=== PATIENT | female | born 1945 | race Caucasian/White ===

== ENCOUNTER 2023-01-01 09:31 | Outpatient (OUT) | payer MEDICARE, BC, SELFPAY ==
--- NOTE | 2023-01-01 09:37 | MM_ITS ---
Patient: KATIE LINDO Exam Date: 01/01/2023 : 1945 Gender:F Ordering : DR Deana Perry M.D. Admission #: [id number] Family : Order #: [id number] CLICK HERE TO VIEW EXAM RADIOLOGY REPORT PROCEDURE: MM TOMOSYNTHESIS SCREENING BI COMPARISON: MG MAMM SCREEN 3D [facility] CAD, 11/25/2021. MG MAMM SCREEN [facility] W CAD, 10/18/2019. MG MAMM SCREEN [facility] W CAD, 10/01/2018. MG MAMM [facility] SCRN W CAD DIG, 08/11/2014. INDICATIONS: Screening mammogram Z12.31 Calculator Name NCI Breast Cancer Risk Assessment Tool 5 Year Breast Cancer Risk 3.00% Lifetime Breast Cancer Risk 5.00% Personal Breast Cancer No Personal Ovarian Cancer No Treatments None Family Cancers Sister with breast cancer at age 70. LOCATION: [facility] BREAST COMPOSITION: Scattered areas fibroglandular density. FINDINGS: DIAGNOSTIC CATEGORY 2--BENIGN FINDING: RIGHT BREAST: No significant suspicious finding. Scattered benign-appearing calcifications are present. Scattered benign-appearing nodules are present. No significant change has occurred. LEFT BREAST: No significant suspicious finding. Scattered benign-appearing calcifications are present. Scattered benign-appearing nodules are present. No significant change has occurred. RECOMMENDATIONS: ROUTINE MAMMOGRAM AND CLINICAL EVALUATION IN 12 MONTHS. PLEASE NOTE: A NORMAL MAMMOGRAM DOES NOT EXCLUDE THE POSSIBILITY OF BREAST CANCER. A CLINICALLY SUSPICIOUS PALPABLE LUMP SHOULD BE BIOPSIED. Dictated by: Bryce To M.D. on 01/01/2023 at 12:40 Approved by: Bryce To M.D. on 01/01/2023 at 12:57
== END 2023-01-01 09:32 | disposition home or self-care (01) ==
LOC: MAMMO 09:31
PROVIDERS: PCP Family Medicine; Visit Provider Family Medicine
DX: Z12.31 Encounter for screening mammogram for malignant neoplasm of breast (principal); Z80.3 Family history of malignant neoplasm of breast
CPT/HCPCS: 77063; 77067

== ENCOUNTER 2023-08-07 09:53 | Outpatient (OUT) | payer MEDICARE, BC, SELFPAY ==
[2023-08-07 10:33] LABS: Basophils Percent Auto 0.9 % (0.2-2.0); Eosinophils Absolute Auto 0.2 10^3/uL (0.0-0.7); Eosinophils Percent Auto 5.5 % (0.9-7.0); Hematocrit 35.1 % (36.0-48.0); Hemoglobin 11.6 g/dL (12.0-16.0); Immature Granulocytes Abs Auto 0.01 10^3/uL (0.00-0.03); Immature Granulocytes Pct Auto 0.3 % (0.0-0.5); Lymphocytes Absolute Auto 0.9 10^3/uL (1.2-3.8); Lymphocytes Percent Auto 24.8 % (20.5-60.0); Mean Corpuscular Hemoglobin 30.3 pg (26.7-34.0); Mean Corpuscular Volume 91.6 fL (81.0-99.0); Mean Platelet Volume 8.7 fL (9.5-13.5); Monocytes Absolute Auto 0.4 10^3/uL (0.3-0.8); Monocytes Percent Auto 11.2 % (1.7-12.0); Neutrophils Percent Auto 57.3 % (43.0-75.0); Platelet Count 213 10^3/uL (150-450); Red Blood Count 3.83 10^6/uL (4.20-5.40); Red Cell Distribution Width 13.1 % (11.0-15.0); White Blood Count 3.5 10^3/uL (4.0-11.0)
[2023-08-07 12:02] LABS: Anion Gap 10.6; BUN Creatinine Ratio 22.8; Calcium 9.1 mg/dL (8.5-10.1); Carbon Dioxide 32.1 mmol/L (21.0-32.0); Chloride 100 mmol/L (98-107); Estimated GFR (African America >60 (>=60); Estimated GFR (Non-African Ame 59 (>=60); Glucose 98 mg/dL (74-106); Potassium 3.7 mmol/L (3.5-5.1); Sodium 139 mmol/L (136-145)
== END 2023-08-07 09:54 | disposition home or self-care (01) ==
LOC: LAB 09:55
PROVIDERS: PCP Family Medicine; Visit Provider Family Medicine
DX: I10 Essential (primary) hypertension (principal)
CPT/HCPCS: 36415; 80048; 85025

== ENCOUNTER 2024-01-07 09:57 | Outpatient (OUT) | payer MEDICARE, BC, SELFPAY ==
--- NOTE | 2024-01-07 | MM_ITS ---
Patient Name: KATIE LINDO MR#: [id number] : 1945 Exam Date: 01/07/2024 Ordering Doctor: DR Deana Perry M.D. RADIOLOGY REPORT PROCEDURE: MM TOMOSYNTHESIS SCREENING BI COMPARISON: MM TOMOSYNTHESIS SCREENING BI, 01/01/2023. MG MAMM SCREEN 3D [facility] CAD, 11/25/2021. MG MAMM SCREEN [facility] W CAD, 10/18/2019. MG MAMM [facility] SCRN W CAD DIG, 08/11/2014. INDICATIONS: SCREENING Calculator Name NCI Breast Cancer Risk Assessment Tool 5 Year Breast Cancer Risk 2.90% Lifetime Breast Cancer Risk 4.50% Personal Breast Cancer No Personal Ovarian Cancer No Treatments None Family Cancers Sister with breast cancer at age 70. LOCATION: [facility] BREAST COMPOSITION: There are scattered areas of fibroglandular density. FINDINGS: DIAGNOSTIC CATEGORY 2--BENIGN FINDING: RIGHT BREAST: No significant suspicious finding. Scattered benign-appearing calcifications are present. Scattered benign-appearing nodules are present. No significant change has occurred. LEFT BREAST: No significant suspicious finding. Scattered benign-appearing calcifications are present. Scattered benign-appearing nodules are present. No significant change has occurred. RECOMMENDATIONS: ROUTINE MAMMOGRAM AND CLINICAL EVALUATION IN 12 MONTHS. PLEASE NOTE: A NORMAL MAMMOGRAM DOES NOT EXCLUDE THE POSSIBILITY OF BREAST CANCER. A CLINICALLY SUSPICIOUS PALPABLE LUMP SHOULD BE BIOPSIED. Dictated by: Bryce To M.D. on 01/08/2024 at 14:47 Approved by: Bryce To M.D. on 01/08/2024 at 14:50
== END 2024-01-07 09:58 | disposition home or self-care (01) ==
LOC: MAMMO 09:57
PROVIDERS: PCP Family Medicine; Visit Provider Family Medicine
DX: Z12.31 Encounter for screening mammogram for malignant neoplasm of breast (principal); Z80.3 Family history of malignant neoplasm of breast
CPT/HCPCS: 77063; 77067

== ENCOUNTER 2024-03-14 13:01 | Emergency (ER) | payer MEDICARE, BC, SELFPAY ==
[2024-03-14] VITALS (11 sets, daily range): BP systolic 127–152; BP diastolic 71–98; PULSE 92–110; TEMP 36.8–37.6; O2SAT 95–141; BMI 32.6
--- NOTE | 2024-03-14 14:17 | ECG_ITS ---
The [facility] Test Date: 2024-03-14 Pat Name: KATIE LINDO Department: Room: - Gender: Female [employer]: : 1945 Requested By: TRAM WALLER Order Number: [id number] Reading MD: SYLVESTER CALDWELL Measurements Intervals [place] Rate: 100 P: 43 NE: 132 QRS: 53 QRSD: 82 T: 11 QT: 328 QTc: 385 Interpretive Statements 1120 Sinus tachycardia 4068 Nonspecific [place] abnormality 9140 abnormal rhythm ECG Compared to ECG 07/08/2018 15:36:41 No significant changes Electronically Signed On 03-14-2024 22:32:22 EST by SYLVESTER CALDWELL
--- NOTE | 2024-03-14 14:17 | CT_ITS ---
The [address] [address] Patient Name: KATIE LINDO MRN: [id number] date: 1945 Sex: F Assigned Patient Location: ER Current Patient Location: ER Accession/Order Number: [id number] Exam Date: 03/14/2024 15:10 Report Date: 03/14/2024 15:52 At the request of: DONNELL FINK Procedure: CT head/brain wo con CT head without contrast, 03/14/2024. HISTORY: Fall. Head injury. COMPARISON: None. TECHNIQUE: Noncontrast axial CT images obtained through the head. Reconstructions obtained in the sagittal and coronal planes. Dose reduction techniques were achieved by using automated exposure control and/or adjustment of mA and/or kV according to patient size and/or use of iterative reconstruction technique. FINDINGS: Paranasal sinuses are clear. Mastoid air cells clear. No acute skull fracture. Orbital contents unremarkable. Extracranial soft tissue structures unremarkable. No hydrocephalus. No mass effect. No shift of midline. No acute intracranial hemorrhage. No intracranial mass. Cannon matter and white matter differentiation is intact. No edema in the brain. CT/CT head/brain wo con IMPRESSION: 1. No acute intracranial findings. No hemorrhage. 2. No skull fracture. Electronically authenticated by: RICH WOODS Date: 03/14/2024 15:52
--- NOTE | 2024-03-14 14:17 | XR_ITS ---
The [address] [address] Patient Name: KATIE LINDO MRN: [id number] date: 1945 Sex: F Assigned Patient Location: ER Current Patient Location: ER Accession/Order Number: [id number] Exam Date: 03/14/2024 15:15 Report Date: 03/14/2024 16:07 At the request of: DONNELL FINK Procedure: XR chest 2V EXAMINATION: XR chest 2V HISTORY: Generalized weakness COMPARISON: No relevant comparison available. TECHNIQUE: PA and lateral FINDINGS: LUNGS: No significant pulmonary parenchymal abnormalities. VASCULATURE: No increased pulmonary vasculature. PLEURA: No pneumothorax, effusion, or pleural thickening. CARDIAC: No cardiomegaly or cardiac silhouette abnormality. MEDIASTINUM: No visible mass or adenopathy. BONES: Mild degenerative disc disease and spondylosis without visible acute abnormalities. OTHER: Negative. XR/XR chest 2V IMPRESSION: No acute cardiopulmonary process Electronically authenticated by: JARED COOPER Date: 03/14/2024 16:07
--- NOTE | 2024-03-14 14:24 | ED_ITS ---
HPI HPI - General Adult General Chief complaint: Fall Stated complaint: FALL Time Seen by Provider: 03/14/24 13:58 Source: patient Mode of arrival: walk-in Limitations: no limitations History of Present Illness HPI narrative: Patient is a 78-year-old female who is presenting after a fall. Patient was walking in the kitchen, patient says that she became weak, and fell to the ground. Patient's was working in the garage, he did hear a thud and went into the house to check on his and found her laying on the ground. Patient says that she fell down to her knees and then rolled over, she did hit the back of her head. She is on no blood thinners. She has no headache or neck pain at this time. Patient has no idea why she became weak suddenly. Patient says that she does not drink as much fluid as she should. Patient has no urinary frequency urgency or burning. However patient said that the last time she felt weak like this and fell, it was 2 or 3 years ago when she did have a urinary tract infection at that time. Patient has no injury to her extremities arms or legs. No back pain, nausea but she did have a dull right lower back pain this weekend. It was minimal and not concerning. at bedside. cannot pick patient off the ground so EMS was called. No other acute complaints at this time. All systems are negative except as noted/marked. All systems reviewed and otherwise negative. Nurses note and vital signs reviewed and patient is not hypoxic. General: The patient appears well and in no apparent distress. Patient is resting comfortably on cart. Patient is not toxic, lethargic, or listless Skin: Warm, dry, no pallor noted. There is no rash noted. No petechiae, purpura. Head: Normocephalic, atraumatic; no midline or paracervical tenderness to palpation. Full range of motion of cervical spine no difficulty. Eye: Normal conjunctiva, no drainage, EOMI. PERRL Ears, Nose, Mouth, and Throat: oral mucosa is moist. Nares patent. Mouth without vesicles. Cardiovascular: Regular Rate and Rhythm, no murmur, gallop, rub Respiratory: Patient is in no distress, no accessory muscle use, lungs are clear to auscultation, no wheezing, rales or rhonchi Back: Minimal tenderness to palpation to the right lower paralumbar area, no rash bruising ecchymosis noted, no true CVA tenderness. No flank pain bilateral. Patient has full range of motion of bilateral lower extremities with no difficulty, no pelvic tenderness to palpation non-tender, no CVA tenderness bilaterally to percussion. No CT LS midline pain GI: no tenderness to palpation, no masses appreciated. No rebound, guarding, or rigidity noted. No distention Musculoskeletal: Patient has full range of motion of all of the extremities, no motor, sensory, or focal neurological deficits Neurological: A&O x4, normal speech Psychiatric: Cooperative Related Data Home Medications ?Medication ?Instructions ?Recorded ?Confirmed lisinopril 20 1 tab PO DAILY 03/14/24 03/14/24 mg-hydrochlorothiazide 25 mg tablet Previous Rx's ?Medication ?Instructions ?Recorded nirmatrelvir 150 mg-ritonavir 100 See Rx Instructions PO .COMPLEX 03/14/24 mg tablets in a dose pack #20 ea (Paxlovid) ondansetron 4 mg disintegrating 4 mg PO Q4H PRN nausea and 03/14/24 tablet vomiting 3 days #6 tabs Allergies Allergy/AdvReac Type Severity Reaction Status Date / Time No Known Drug Allergies Allergy Verified 03/14/24 13:04 Opioid HPI Opioid Management Most Recent Opioid Data: Last Pain Scale 1 03/14/24 13:11 03/14/24 PFSH PFSH Social History Little interest or pleasure in doing things: not at all Feeling down, depressed, or hopeless: not at all Exam Constitutional Vital Signs, click to edit/add: Last Vital Signs Temp 99.6 F 03/14/24 19:05 Pulse 92 H 03/14/24 19:05 Resp 18 03/14/24 19:05 BP 141/82 03/14/24 19:05 Pulse Ox 141 H 03/14/24 19:05 O2 Del Method Room Air 03/14/24 13:04 Course Vital Signs Vital signs: Vital Signs Temperature 98.2 F 03/14/24 13:04 Pulse Rate 102 H 03/14/24 13:04 Respiratory Rate 18 03/14/24 13:04 Blood Pressure 134/71 03/14/24 13:04 Pulse Oximetry 100 03/14/24 13:04 Oxygen Delivery Method Room Air 03/14/24 13:04 Temperature 99.6 F 03/14/24 19:05 Pulse Rate 92 H 03/14/24 19:05 Respiratory Rate 18 03/14/24 19:05 Blood Pressure 141/82 03/14/24 19:05 Pulse Oximetry 141 H 03/14/24 19:05 Oxygen Delivery Method Room Air 03/14/24 13:04 Medical Decision Making MDM Narrative Medical decision making narrative: 1720 CT of the head, chest x-ray showed no acute findings. Patient was reassessed, patient does not feel any different at this time compared to when she walked in the door, however she did not feel that when she got here either. Patient lab work shows mild anemia, patient has chronic renal insufficiency. Patient was attempted to go to the restroom several hours ago by Ajay RN, she was not able to urinate. Patient will be drinking water. Patient states that she has not drink much today therefore does not believe that she can urinate. Patient once urine sample is obtained, we will evaluate and then discharge. 1855 patient has been drinking water water, patient did have a bladder scan. Patient did have approximately 670 cc of fluid in the bladder scan, patient was eventually able to urinate after 3 to 4 hours patient has been drinking liquids well. Patient CT of the head negative. Patient urine shows no acute findings. Patient had education done Paxlovid, patient wanted to and chose to take the prescription for Paxlovid. Patient and her just had immunization shots for COVID 2 weeks ago. Education was done with son, and patient at bedside. Patient will continue symptomatic treatment. Patient will follow-up with PCP. No questions at discharge. Patient was sent home with a prescription for Zofran to use prophylactically if needed. Lab Data Lab results reviewed: Yes I reviewed the patient's lab results Labs: Lab Results 03/14/24 03/14/24 03/14/24 Range/Units 14:23 17:30 18:06 WBC 6.3 (4.0-11.0) 10^3/uL RBC 3.87 L (4.20-5.40) 10^6/uL Hgb 11.6 L (12.0-16.0) g/dL Hct 34.4 L (36.0-48.0) % MCV 88.9 (81.0-99.0) fL MCH 30.0 (26.7-34.0) pg MCHC 33.7 (29.9-35.2) g/dL RDW 12.9 (11.0-15.0) % Plt Count 230 (150-450) 10^3/uL MPV 8.9 L (9.5-13.5) fL Seg Neuts % (Manual) 84.0 H (43.0-75.0) Lymphocytes % (Manual) 10.0 L (20.5-60.0) % Monocytes % (Manual) 6.0 (1.7-12.0) % Eosinophils % (Manual) 0.0 L (0.9-7.0) % Basophils % (Manual) 0.0 L (0.2-2.0) % Neutrophils # (Manual) 5.29 (1.4-6.5) 10^3/uL Band Neutrophils # 0.6 H (0.0-0.3) 10^3/uL Lymphocytes # (Manual) 0.63 L (1.20-3.80) 10^3/uL Monocytes # (Manual) 0.37 (0.30-0.80) 10^3/uL Eosinophils # (Manual) 0.00 (0.00-0.70) 10^3/uL Basophils # (Manual) 0.00 (0.00-0.10) 10^3/uL Sodium 137 (136-145) mmol/L Potassium 3.5 (3.5-5.1) mmol/L Chloride 99 (98-107) mmol/L Carbon Dioxide 29.2 (21.0-32.0) mmol/L Anion Gap 12.3 BUN 19.0 H (7.0-18.0) mg/dL Creatinine 1.03 H (0.55-1.02) mg/dL Est GFR ( Amer) >60 (>=60 mL/min/1.73m^2) Est GFR (Non-Af Amer) 52 L (>=60 mL/min/1.73m^2) BUN/Creatinine Ratio 18.4 Glucose 114 H (74-106) mg/dL Calcium 9.3 (8.5-10.1) mg/dL Total Creatine Kinase 114 (26-192) U/L Troponin I High Sens 5.5 (4.0-51.3) pg/mL Urine Color Lt. yellow (YELLOW) Urine Clarity Clear (CLEAR) Urine pH 6.0 (5.0-9.0) Ur Specific [place] 1.020 (1.005-1.025) Urine Protein Negative (NEG/TRACE) mg/dL Urine Glucose (UA) Negative (NEGATIVE) mg/dL Urine Ketones 40 A (NEGATIVE) mg/dL Urine Occult Blood Small A (NEGATIVE) Urine Nitrite Negative (NEGATIVE) Urine Bilirubin Negative (NEGATIVE) Urine Urobilinogen 0.2 (0.2-1.0) EU/dL Ur Leukocyte Esterase Trace A (NEGATIVE) Urine RBC 0-2 (0-2) #/HPF Urine WBC 0-2 A (NONE SEEN) #/HPF Ur Squamous Epith Cells Few A (NONE/RARE) #/LPF Urine Crystals None seen (None Seen) #/HPF Urine Bacteria Small A (NONE SEEN) #/HPF Urine Casts None seen (NONE SEEN) #/LPF Urine Mucus Small A (NONE SEEN) Ur Culture Indicated? Yes SARS-CoV-2 Ag (CV2AG) Positive A (NEGATIVE) Imaging Data CT scan - pelvis: Radiologist's impression: ITS Impressions Chest X-Ray 03/14/24 14:17 IMPRESSION: No acute cardiopulmonary process Electronically authenticated by: JARED COOPER Date: 03/14/2024 16:[address] 03/14/24 14:17 IMPRESSION: 1. No acute intracranial findings. No hemorrhage. 2. No skull fracture. Electronically authenticated by: RICH WOODS Date: 03/14/2024 15:52 ECG Data Attestation: I personally reviewed and interpreted this ECG as follows: (EKG interpretation. Sinus tachycardia at 100 beats a minute. Normal axis deviation. Artifact noted. Q waves noted through the anterior anterior lateral leads, QTc of 385.) Discharge Plan Discharge Chief Complaint: Fall Clinical Impression: COVID, Weakness, Fall, CHI (closed head injury) Patient Disposition: Home, Self-Care Time of Disposition Decision: 18:52 Condition: Fair Prescriptions / Home Meds: New Paxlovid 150-100 mg tablets,dose pack See Rx Instructions .ROUTE .COMPLEX Qty: 20 0RF Rx Instructions: take ONE 150 mg tablet of nirmatrelvir with ONE 100 mg tablet of ritonavir twice daily for 5 days ondansetron 4 mg tablet,disintegrating 4 mg PO Q4H PRN (Reason: nausea and vomiting) 3 Days Qty: 6 0RF No Action lisinopril-hydrochlorothiazide 20-25 mg tablet 1 tab PO DAILY Print Language: Kinyarwanda Instructions: Head Injury (ED), Weakness (ED), Fall Prevention (ED), COVID-19 (Coronavirus Disease 2019) (ED) Additional Instructions: Increase fluids at home, Gatorade, Powerade, or water. Alternate using DayQuil, NyQuil, and Flonase. Add Mucinex as well as needed for sinus congestion. Alternate Tylenol and Motrin every 4 hours to help with fever control, body aches or joint pain. Use qnof-xou-jelnilo vitamin C, vitamin D3, and zinc to help fight infection and help with her immune system. Referrals: Deana Perry MD [Primary Care Provider] - 1 week Discharge Date/Time: 03/14/24 19:20
[2024-03-14 14:47] LABS: Hematocrit 34.4 % (36.0-48.0); Hemoglobin 11.6 g/dL (12.0-16.0); Mean Corpuscular HGB Conc 33.7 g/dL (29.9-35.2); Mean Corpuscular Volume 88.9 fL (81.0-99.0); Mean Platelet Volume 8.9 fL (9.5-13.5); Platelet Count 230 10^3/uL (150-450); Red Blood Count 3.87 10^6/uL (4.20-5.40); Red Cell Distribution Width 12.9 % (11.0-15.0); White Blood Count 6.3 10^3/uL (4.0-11.0)
[2024-03-14 15:00] LABS: Creatine Kinase 114 U/L (26-192)
[2024-03-14 15:02] LABS: Anion Gap 12.3; BUN Creatinine Ratio 18.4; Calcium 9.3 mg/dL (8.5-10.1); Carbon Dioxide 29.2 mmol/L (21.0-32.0); Chloride 99 mmol/L (98-107); Estimated GFR (African America >60 (>=60 mL/min/1.73m^2); Estimated GFR (Non-African Ame 52 (>=60 mL/min/1.73m^2); Glucose 114 mg/dL (74-106); Potassium 3.5 mmol/L (3.5-5.1); Sodium 137 mmol/L (136-145); Troponin I High Sensitivity 5.5 pg/mL (4.0-51.3)
[2024-03-14 15:36] LABS: Band Neutrophils Absolute 0.6 10^3/uL (0.0-0.3); Lymphocytes Absolute Manual 0.63 10^3/uL (1.20-3.80); Monocytes Absolute Manual 0.37 10^3/uL (0.30-0.80); Segmented Neut Absolute Manual 5.29 10^3/uL (1.4-6.5)
[2024-03-14 18:14] LABS: Internal Control Within Normal Limits; SARS-CoV-2 Ag POSITIVE (NEGATIVE)
[2024-03-14 18:17] LABS: Bilirubin Urine NEGATIVE (NEGATIVE); Blood Urine SMALL (NEGATIVE); Clarity Urine CLEAR (CLEAR); Color Urine LT. YELLOW (YELLOW); Glucose Urine UA NEGATIVE (NEGATIVE); Ketones Urine 40 mg/dL (NEGATIVE); Leukocyte Esterase Urine TRACE (NEGATIVE); Nitrite Urine NEGATIVE (NEGATIVE); Protein Urine NEGATIVE (NEG/TRACE); Urobilinogen Urine 0.2 EU/dL (0.2-1.0)
[2024-03-14 18:30] LABS: Bacteria Urine SMALL #/HPF (NONE SEEN); Cast Seen? NONE SEEN #/LPF (NONE SEEN); Crystals Seen? None Seen #/HPF (None Seen); Mucus Urine SMALL (NONE SEEN); RBC Urine 0-2 #/HPF (0-2); Squamous Epithelial Cell Urine FEW #/LPF (NONE/RARE); Urine Culture Indicated YES; WBC Urine 0-2 #/HPF (NONE SEEN)
--- NOTE | 2024-03-14 19:24 | PC.NURSE ---
i gave verbal and written discharge orders along with 2 e-scripts, this patient voics yes to understanding. at time of discharge this patient voices no concerns and shows no signs of distress
== END 2024-03-14 19:20 | disposition home or self-care (01) ==
PROVIDERS: Emergency Provider Emergency Medicine; PCP Family Medicine
DX: U07.1 COVID-19 (principal); S09.8XXA Other specified injuries of head, initial encounter; R53.1 Weakness; W19.XXXA Unspecified fall, initial encounter; N18.9 Chronic kidney disease, unspecified
CPT/HCPCS: 36415; 70450; 71046; 80048; 81001; 82550; 84484; 85007; 85027; 87086; 87811; 93005; 99285

== ENCOUNTER 2024-09-02 08:58 | Outpatient (OUT) | payer MEDICARE, BC, SELFPAY | END 2024-09-02 08:59 | disposition home or self-care (01) | LOC: RAD 08:59 | PROVIDERS: PCP Family Medicine; Visit Provider Family Medicine | DX: M85.80 Other specified disorders of bone density and structure, unspecified site (principal); Z78.0 Asymptomatic menopausal state | CPT/HCPCS: 77080 ==